=== PATIENT | female | born 1945 | race Caucasian/White ===

== ENCOUNTER 2018-02-18 09:26 | Emergency (ER) | payer MEDICARE ==
--- NOTE | 2018-02-18 10:09 | ED ---
Abdominal Pain/Female - HPI Summary HPI Summary: Patient presents with abdominal pain since yesterday. She reports this started in the central lower pelvis and she had some pressure with urination and urge to urinate. She also admits to malodorous urine. Today however she is experienced left lower quadrant pain and when she palpated the area it was quite tender and painful. She states that she developed flulike symptoms entailing fatigue and chills along with "queasiness" without vomiting. She's also had a couple of loose stoolsdenies hematochezia or melena. She denies vaginal discharge, irritation or itching. She still has her uterus and ovaries as well as a history of fibroids. No history of cysts or torsion. She has a history of constipation but no known diverticulosis or history of diverticulitis. She also denies flank pain and has a history of UTIsreports this does not feel the same. She was seen at her PCPs office earlier today and was sent here to assess for diverticulitis. Based on patient's clinical presentation, I agree this is appropriate to rule out. - History of Current Complaint Chief Complaint: EDTeddy Stated Complaint: abd pain Time Seen by Provider: 02/18/18 09:48 Hx Obtained From: Patient Hx Last Menstrual Period: NA Pain Intensity: 5 Allergies/Adverse Reactions: Allergies Allergy/AdvReac Type Severity Reaction Status Date / Time cephalexin Allergy Severe Swelling Verified 02/18/18 10:20 Of Face,Lips,& Throat amoxicillin [From Augmentin] Allergy Intermediate Abdominal Verified 02/18/18 10 :20 Pain clavulanic acid Allergy Intermediate Abdominal Verified 02/18/18 10:20 [From Augmentin] Pain pantoprazole [From Protonix] Allergy Intermediate Pain Verified 02/18/18 10:20 Iodinated Contrast- Oral and Allergy Rash And Verified 02/18/18 10:14 IV Dye Itching Penicillins Allergy Unknown Verified 02/18/18 10:21 Reaction Details Home Medications: Home Medications Cod Liver Oil 1 cap PO DAILY 02/18/18 [History Confirmed 02/18/18] Kelp 1 tab PO DAILY 02/18/18 [History Confirmed 02/18/18] Magnesium Glycinate [Mag Glycinate] 500 mg PO DAILY 02/18/18 [History Confirmed 02/18/18] Potassium 1 tab PO DAILY 02/18/18 [History Confirmed 02/18/18] PMH/Surg Hx/FS Hx/Imm Hx Previously Healthy: Yes Endocrine/Hematology History: Denies: Hx Anticoagulant Therapy, Hx Blood Disorders, Hx Diabetes, Hx Thyroid Disease, Hx Anemia, Autoimmune Disease Cardiovascular History: Denies: Hx Congestive Heart Failure, Hx Hypertension, Hx Pacemaker/ICD Respiratory History: Denies: Hx Asthma, Hx Chronic Obstructive Pulmonary Disease (COPD) GI History: Denies: Hx Cirrhosis, Hx Crohn's Disease, Hx Diverticulosis, Hx Gall Bladder Disease, Hx Gastroesophageal Reflux Disease, Hx Gastrointestinal Bleed, Hx Hiatal Hernia, Hx Irritable Bowel, Hx Ulcer History: Reports: Hx Kidney Infection Denies: Hx Acute Renal Failure, Hx Chronic Renal Failure, Hx Kidney Stones, Hx Renal Disease Musculoskeletal History: Reports: Hx Back Problems - chronic, intermittent LBP Sensory History: Reports: Hx Contacts or Glasses Denies: Hx Hearing Aid Opthamlomology History: Reports: Hx Contacts or Glasses Psychiatric History: Denies: Hx Panic Disorder - Surgical History Surgery Procedure, Year, and Place: TEETH EXTRACTED Infectious Disease History: No Infectious Disease History: Denies: Hx Clostridium Difficile, Hx Hepatitis, Hx Human Immunodeficiency Virus (HIV), Hx of Known/Suspected MRSA, Hx Shingles, Hx Tuberculosis, Hx Known/ Suspected VRE, Hx Known/Suspected VRSA, History Other Infectious Disease, Traveled Outside the [place] in Last 30 Days - Family History Known Family History: Positive: None - Social History Occupation: Retired Lives: With Family Alcohol Use: None - was drinking daily however stopped 4 weeks ago when legs were swelling Hx Substance Use: No Substance Use Type: Reports: None Hx Tobacco Use: No Smoking Status (MU): Never Smoked Tobacco Review of Systems Positive: Fever - subjective, Chills, Fatigue Eyes: Negative ENT: Negative Cardiovascular: Negative Respiratory: Negative Positive: Abdominal Pain, Diarrhea, Nausea. Negative: Vomiting Positive: see HPI Musculoskeletal: Negative Skin: Negative Neurological: Other - baseline vertigo from dx'd BPPV Psychological: Normal All Other Systems Reviewed And Are Negative: Yes Physical Exam Triage Information Reviewed: Yes Vital Signs On Initial Exam: Initial Vitals Temp Pulse Resp BP Pulse Ox 97.8 F 84 18 169/92 98 02/18/18 09:34 02/18/18 09:34 02/18/18 09:34 02/18/18 09:34 08/29/18 09:34 Vital Signs Reviewed: Yes Appearance: Positive: Well-Appearing, No Pain Distress, Obese Skin: Positive: Warm, Skin Color Reflects Adequate Perfusion, Dry Head/Face: Positive: Normal Head/Face Inspection Eyes: Positive: Normal, EOMI, Conjunctiva Clear - anicteric sclera ENT: Positive: Hearing grossly normal, Pharynx normal - mucosa moist Neck: Positive: Supple Respiratory/Lung Sounds: Positive: Clear to Auscultation, Breath Sounds Present. Negative: Rales, Rhonchi, Wheezes, Unable to speak in full sentences, Fatigue Cardiovascular: Positive: Normal, RRR, S1, S2. Negative: Murmur, Rub, Leg Edema Left, Leg Edema Right Abdomen Description: Positive: No Organomegaly, Soft, Other: - LLQ ttp - no rebounding. Negative: Bruit, CVA Tenderness (R), CVA Tenderness (L), Hernia @ Bowel Sounds: Positive: Present Pelvic Exam: Positive: Other - deferred Musculoskeletal: Positive: Strength/ROM Intact Neurological: Positive: Normal, Sensory/Motor Intact, Alert, Oriented to Person Place, Time, CN Intact II-III Psychiatric: Positive: Normal Diagnostics - Vital Signs Vital Signs Temp Pulse Resp BP Pulse Ox 02/18/18 09:34 97.8 F 84 18 169/92 98 - Laboratory Result Diagrams: 02/18/18 10:13 02/18/18 10:13 Lab Statement: Any lab studies that have been ordered have been reviewed, and results considered in the medical decision making process. Discharge - Sign-Out/Discharge Documenting (check all that apply): Patient Departure - Discharge Plan Condition: Stable Disposition: HOME Prescriptions: Ciprofloxacin TAB* [Cipro 500 MG TAB*] 500 mg PO BID #20 tab metroNIDAZOLE [Flagyl 500 MG TAB] 500 mg PO TID #30 tab Patient Education Materials: Diverticulitis (ED), Diverticulitis Diet (ED) Referrals: Radha Taveras MD [Primary Care Provider] - Additional Instructions: Your CT scan shows signs of what may be diverticulitis, an inflammatory and sometimes infectious process of the colon. This was also read as a possible mass and so it is important that you have this followed up with a colonoscopy as soon as possible. Call your PCP today to schedule follow-up. *If you develop worsening of pain, fever, inability to urinate or move her bowels or heavy diarrhea/bloody stools, return to the emergency department. - Billing Disposition and Condition Condition: STABLE Disposition: Home
[2018-02-18 10:37] LABS: ABS Basophils 0.1 10^3/ul (0-0.2); ABS Eosinophils 0.2 10^3/ul (0-0.6); ABS Lymphocytes 1.9 10^3/ul (1.0-4.8); ABS Monocytes 0.6 10^3/ul (0-0.8); ABS Neutrophils 5.5 10^3/ul (1.5-7.7); ABS Nucleated RBC 0 10^3/ul; Eosinophil % 2.7 % (0-6); Hematocrit 39 % (35-47); Hemoglobin 13.5 g/dl (12.0-16.0); Lymphocyte % 23.2 % (25-47); Mean Corpuscular HGB Conc 34 g/dl (31-36); Mean Corpuscular Hemoglobin 31 pg (27-31); Mean Corpuscular Volume 91 fL (80-97); Mean Platelet Volume 8.2 um3 (7.4-10.4); Nucleated Red Blood Cells % 0.2; Platelet Count 254 10^3/ul (150-450); Red Blood Count 4.33 10^6/ul (4.00-5.40); Red Cell Distribution Width 14 % (10.5-15); White Blood Count 8.4 10^3/ul (3.5-10.8)
[2018-02-18 10:49] LABS: EGFR Non-African American 74.1 (>60)
[2018-02-18 11:06] LABS: Urine Appearance Clear; Urine Blood 2+ (Negative); Urine Color Yellow; Urine Ketones Negative (Negative); Urine Protein Negative (Negative); Urine Red Blood Cell 2+(6-10/hpf) (Absent); Urine Specific Gravity 1.009 (1.010-1.030); Urine Urobilinogen Negative (Negative); Urine White Blood Cell Trace(0-5/hpf) (Absent)
[2018-02-18] MEDS ORDERED: NS 0.9% 500 ML* 500 ML IV ONE (11:14)
--- NOTE | 2018-02-18 13:05 | RAD ---
INDICATION: Left lower quadrant pain history of constipation assess for diverticulitis. COMPARISON: There are no relevant prior studies available for comparison. TECHNIQUE: A CT scan of the abdomen and pelvis was performed without intravenous and with oral contrast. Contiguous axial sections were obtained from the lung bases through the symphysis pubis. Images were reconstructed in the coronal and sagittal planes. FINDINGS: LUNGS: The lung bases are clear. No pleural effusion is present. LIVER: The liver is normal in size. No focal abnormality is seen on this noncontrast study. GALLBLADDER: No calcified gallstones are seen. BILE DUCTS: No intra or extrahepatic ductal distention is seen. SPLEEN: The spleen is normal in size without focal abnormality. PANCREAS: The pancreas is normal in size. No ductal distention or calcifications are seen. ADRENAL GLANDS: The adrenal glands are normal in size. KIDNEYS: The kidneys are normal in size. No renal calculi or hydronephrosis is seen. There is a small fluid density area in the lower pole of the right kidney likely representing a cyst on this noncontrast study. AORTA: The aorta is normal in caliber with mild calcific plaque present. LYMPH NODES: No significantly enlarged lymph nodes are seen. BOWEL: The stomach, small and large bowel appear nondistended. The appendix appears to be within normal limits. There is a focal area of wall thickening at the descending sigmoid junction with mild adjacent interstitial stranding. This is a nonspecific finding likely represents diverticulitis although a mass cannot be excluded. Recommend follow-up colonoscopy. PELVIC ORGANS: No bladder wall thickening is seen. The uterus is retroverted and mildly enlarged. PERITONEUM: No free intraperitoneal air or fluid is seen. BONES: No significant focal osseous abnormality is seen. IMPRESSION: THERE IS FOCAL THICKENING OF THE WALL OF THE COLON AT THE DESCENDING SIGMOID JUNCTION WITH MILD ADJACENT INTERSTITIAL STRANDING FAVORING DIVERTICULITIS ALTHOUGH A COLON MASS CAN HAVE A SIMILAR APPEARANCE. THEREFORE RECOMMEND FOLLOW-UP COLONOSCOPY FOR FURTHER EVALUATION.
[2018-02-18 14:27] VITALS: BP 168/98
== END 2018-02-18 14:26 | disposition home or self-care (01) ==
LOC: ED 09:26
DX: R10.32 Left lower quadrant pain (principal); R11.0 Nausea; R19.7 Diarrhea, unspecified; Z88.0 Allergy status to penicillin; Z88.8 Allergy status to other drugs, medicaments and biological substances; Z88.1 Allergy status to other antibiotic agents; Z91.041 Radiographic dye allergy status
CPT/HCPCS: 36415; 74176; 80053; 81003; 81015; 83605; 83690; 83735; 85025; 86140; 87086; 96360; 99283

== ENCOUNTER 2022-06-20 08:03 | Observation (INO) ==
[~2022-06-20 08:03] MED LIST: APREPITANT 130 MG in Premix IV 0 ML IV SCH; APREPITANT 130 MG in Premix IV 0 ML IVPB SCH; CARBOPLATIN IVPB SCH; Lidocaine 2% PF 5 ML VIAL ONE; NS 0.9% IVPB SCH; PACLITAXEL IVPB SCH; [UNRECOGNIZED DRUG - OTHER] IVPB SCH; [UNRECOGNIZED DRUG - OTHER] IVPB SCH
[2022-06-20] MEDS ORDERED: Dexamethasone IV 4 MG/ML 5 ML VIAL (20 MG) IVPB ONE (08:23)
[2022-06-20] MEDS ORDERED: Famotidine IV 10 MG/ML 2 ml VIAL (20 mg) ONE (08:24)
[2022-06-20] MEDS ORDERED: PALONOSETRON HCL 0.05 MG/ML (0.25 MG) SYRINGE (0.05 MG/ML) ONE (08:24)
[2022-06-20] MEDS ORDERED: diphenhydrAMINE 50 MG/ML INJ SYRINGE *CHOA ONE (08:24)
[2022-06-20] MEDS ORDERED: Lorazepam PYXIS KEY ONE (08:47)
[2022-06-20] MEDS ORDERED: LORazepam 2 mg VIAL 1 ml ONE (08:48)
[2022-06-20] MEDS ORDERED: methylPREDNISolone SOD SUCC 125 mg 2 ML VIAL IV PRN (12:45)
[2022-06-20] MEDS ORDERED: Lorazepam PYXIS KEY PRN (12:45)
[2022-06-20] MEDS ORDERED: LORazepam 2 mg VIAL 1 ml IV PUSH PRN (12:45)
[2022-06-20] MEDS: NS 0.9% 1000 ml BAG 1,000 ML IV SCH (17:03)
[2022-06-20] MEDS: Prochlorperazine 5 mg/ml 2 ml VIAL (10 mg) IV PRN (20:50)
[2022-06-21 04:56] LABS: ABS Lymphocytes 1.1 10^3/ul (1.0-4.8); ABS Monocytes 0.2 10^3/ul (0-0.8); ABS Neutrophils 4.5 10^3/ul (1.5-7.7); Hematocrit 29 % (35-47); Hemoglobin 9.6 g/dL (12.0-16.0); Lymphocyte % 18.9 %; Mean Corpuscular HGB Conc 33 g/dL (31-36); Mean Corpuscular Hemoglobin 35 pg (27-31); Mean Corpuscular Volume 105 fL (80-97); Mean Platelet Volume 7.1 fL (7.4-10.4); Nucleated Red Blood Cells % 0.1; Platelet Count 302 10^3/uL (150-450); Red Blood Count 2.73 10^6 /uL (3.70-4.87); Red Cell Distribution Width 19 % (10-15); White Blood Count 5.9 10^3/uL (3.5-10.8)
[2022-06-21] MEDS: NS 0.9% 1000 ml BAG 1,000 ML IV SCH (07:00)
[2022-06-21 07:42] VITALS: BP 147/78
[2022-06-21] MEDS: Prochlorperazine 5 mg/ml 2 ml VIAL (10 mg) IV PRN (09:25)
== END 2022-06-21 10:50 | disposition home or self-care (01) ==
LOC: CHOA 08:03 → MED 08:03
PROVIDERS: ADMIT Internal Medicine Hematology & Oncology; ATTEND Internal Medicine Hematology & Oncology